=== PATIENT | male | born 1990 | race Caucasian/White ===

== ENCOUNTER 2016-10-04 10:57 | Observation (INO) | payer SELFPAY ==
[~2016-10-04 10:57] MED LIST: ceFAZolin 2 GM/DEXTROSE 100 ML IV SCH
[2016-10-04] MEDS ORDERED: fentaNYL 100 MCG/2 ML INJ ONE ×3 (11:05→17:13)
[2016-10-04] MEDS ORDERED: ONDANSETRON 4 MG/2 ML VIAL ONE ×2 (11:05→19:05)
--- NOTE | 2016-10-04 11:22 | EDPHY ---
H & P HPI/ROS: CHIEF COMPLAINT: Fall HISTORY OF PRESENT ILLNESS: Patient is a 26-year-old male who presents emergency department after falling approximately 15 feet while climbing. Patient had a prolonged extrication. Patient arrives by [facility]. Patient complains of bilateral ankle pain that is severe. Patient states he thinks his ankle was dislocated. The patient also complains of moderate left knee pain. Patient states he dislocated his right shoulder but was able to put it back in. The patient denies striking his head. He has no headache or loss of consciousness. No nausea or vomiting. No neck pain. No back pain. The patient denies chest pain or shortness of breath. No abdominal discomfort. REVIEW OF SYSTEMS: My complete review of systems is negative except as mentioned in the HPI. Past Medical/Surgical History: Negative Past surgical history: Negative Social history: Patient does not smoke. Smoking Status: Never smoked Physical Exam: Vitals noted GENERAL: Well-appearing, in no acute distress, alert. HEAD: No evidence of trauma. EYES: PERRLA, EOMI, normal to inspection. ENT: Airway intact, no dental or oral injury, no malocclusion, no hemotympanum , normal external examination. NECK: The trachea is midline. There is no crepitus. The C-spine is nontender. NEXUS criteria is negative (no midline tenderness, no distracting injury, no altered mental status, no recent alcohol use, no focal neurologic deficit). RESPIRATORY: Clear to auscultation bilaterally, no rales, rhonchi or wheezing. There is no crepitus or palpable rib fractures. CVS: Regular rate and rhythm, no rubs, murmurs, or gallops. ABDOMEN: Soft, nontender, nondistended, normal bowel sounds, no bruising or abrasions. Pelvis: Stable. No tenderness palpation. Hips full range of motion. GENITAL/RECTAL: Normal external exam. BACK: Normal to inspection, no spinal tenderness, no spinal step off, no notable bruising or abrasions. SKIN: Normal color, warm, dry. No pallor or diaphoresis. EXTREMITIES: Right upper extremity: Mild right shoulder tenderness to palpation. No deformity. No laceration. Neurovascular intact distally. Left upper extremity: Atraumatic. No visible signs of trauma. No tenderness palpation. Neurovascular intact distally. Right lower extremity: Swollen and diffusely tender right ankle. No proximal tib-fib tenderness to palpation. Femur nontender. Patella is nontender Neurovascular intact distally. Left lower extremity: Swollen and diffusely tender left ankle. Small abrasion. No proximal tib-fib tenderness palpation. Patella is nontender. Femur nontender. Neurovascular intact distally. NEURO/PSYCH: Alert and oriented x 3, GCS 15, normal mood and affect, normal motor sensory exam. Constitutional: Initial Vital Signs Temperature (C) 36.7 C 10/04/16 11:05 Heart Rate 88 10/04/16 11:05 Respiratory Rate 18 10/04/16 11:05 Blood Pressure 160/109 H 10/04/16 11:05 O2 Sat (%) 100 10/04/16 11:05 O2 Delivery Mode Non-Rebreather Mask Allergies/Adverse Reactions: No Known Allergies Allergy (Unverified 10/04/16 11:04) Home Medications: Medication Instructions Recorded NK [No Known Home Meds] 10/04/16 Medical Decision Making - Diagnostics Imaging Results: Imaging Impressions Pelvis X-Ray 10/04/16 11:05 Impression: 1. Negative AP pelvis radiograph. Lumbar Spine X-Ray 10/04/16 11:09 Impression: Negative limited lumbar spine radiographs. If the patient has persistent pain and lumbar spine region, noncontrast CT is suggested. Shoulder X-Ray 10/04/16 11:23 Impression: Negative right shoulder radiographs. ED Course/Re-evaluation: In the emergency department I met [facility] on arrival. I took report from the flight team. I discussed the plan with the patient answered all his questions. Dr. Zoltan Quigley from trauma service was present. Rechecked the patient on numerous occasions. I spent considerable time at the patient's bedside. I reviewed the patient's imaging studies Right shoulder x-ray: No acute disease Pelvic x-ray: No acute disease Right ankle x-ray: Patient has an abnormal pending right ankle. I reviewed this with the radiologist Dr. Alva. Please refer the dictated report. He recommended CT imaging. Left ankle x-ray: Patient has a distal fracture of tibia and fibula. I discussed the x-ray results with Dr. Purvis from Orthopedics. He recommended bilateral ankle/foot CT scans. I discussed the results with the patient. I answered all his questions. He is placed in a shoulder sling on the right side. He was neurovascularly intact post sling placement. I discussed the findings with Dr. Jonny Quigley. I discussed the plan of CT imaging and admission. A long leg posterior splint was placed on the left. A short-leg posterior placed on the right. Patient was neurovascular intact bilaterally after splint placement. Differential Diagnosis: Differential includes but is not limited to fracture, dislocation, contusion, sprain, pelvic fracture, spinal injury, closed head injury - Data Points Laboratory Results: 10/04/16 10:59 POC Hgb 14.3 gm/dL gm/dL (13.7-17.5) POC Hct 42 % % (40-51) POC Sodium 141 mEq/L mEq/L (134-144) POC Potassium 3.5 mEq/L mEq/L (3.3-5.0) POC Chloride 103 mEq/L mEq/L (97-110) POC BUN 16 mg/dL mg/dL (7-23) POC Creatinine 1.0 mg/dL mg/dL (0.7-1.3) POC Glucose 135 mg/dL H mg/dL (70-100) Point of Care Test Results: 10/04/16 10:59 POC Sodium 141 POC Potassium 3.5 POC Chloride 103 POC BUN 16 POC Creatinine 1.0 POC Glucose 135 H Departure - Departure Disposition: [facility] Inpatient Acute Clinical Impression: Ankle fracture Condition: Good
[2016-10-04] MEDS ORDERED: fentaNYL 100 MCG/2 ML INJ IVP ONE ×2 (13:27→16:45)
--- NOTE | 2016-10-04 15:18 | PDGENHP ---
History & Physical Chief Complaint: PAINFUL ANKLES AFTER A FALL History of Present Illness: 26-YEAR-OLD MALE WHO FELL LAST NIGHT APPROXIMATELY 15 FEET SUSTAINING BILATERAL ANKLE INJURIES. NOT EXTRICATED FROM THE WOOD'S UNTIL THIS MORNING AND COMPLAINS OF PRIMARILY ONLY ANKLE PAIN AND SOME LEFT KNEE PAIN. HE ALSO HAD A RIGHT SHOULDER DISLOCATION WHICH HE FEELS LIKE HE REDUCED HIMSELF, SOMETHING HE HAS HAD TO DO 2 3 OTHER TIMES. ADMITTED AT THIS TIME A TRAUMA ACTIVATION Pertinent Past, Social, Family History: PAST MEDICAL HISTORY INCLUDES CHOLECYSTECTOMY. ALLERGIES NONE. MEDICATIONS NONE. REVIEW OF SYSTEMS IS NEGATIVE ON A FULL 10 POINT REVIEW OF SYSTEMS AND SPECIFICALLY NO CARDIOPULMONARY SYMPTOMS OR SMOKING. FAMILY HISTORY NONCONTRIBUTORY Relevant Physical Exam: GENERAL HEALTHY 26-YEAR-OLD MALE WHO IS IN NO ACUTE DISTRESS AND AFEBRILE. HEENT: PERRLA, EOMS INTACT, NO ORAL LESIONS OR THYROMEGALY, NECK IS SUPPLE NONTENDER. CHEST: CLEAR AND SYMMETRIC WITH NO PALPABLE RIB FRACTURES. COR: REGULAR RHYTHM WITHOUT MURMURS. ABDOMEN: SOFT NONTENDER WITHOUT ORGANOMEGALY. EXTREMITIES: FULL DISTAL PULSES, BILATERAL PALPABLE ANKLE FRACTURES WORST ON THE LEFT. BOTH FRACTURES ARE CLOSE. THE EXAM REVEALS A STABLE KNEE. NEURO: CRANIAL NERVES INTACT, MOTOR AND SENSORY EXAM EQUAL AND SYMMETRIC. PSYCH: ORIENTED AND COOPERATIVE IN FULLY AWARE. MUSCULOSKELETAL: NO BACK HER RIB FRACTURES A PALPABLE Cardiorespiratory Assessment: IMPRESSION: BILATERAL ANKLE FRACTURES WORSE ON THE LEFT. PLAN: ORTHOPEDIC CONSULTATION. ADMITTED TO THE TRAUMA SERVICE. IVS AND PAIN MEDICATION UNTIL FURTHER DECISIONS ABOUT SURGERY ARE MADE
[2016-10-04] MEDS ORDERED: ONDANSETRON 4 MG/2 ML VIAL IVP PRN ×2 (15:25→21:22)
[2016-10-04] MEDS ORDERED: D5W 1/2 NS W/ 20 KCl/L 1,000 ML IV SCH (15:30)
[2016-10-04] MEDS: HYDROmorphONE/DILAUDID 1 MG/ML SYR IVP PRN ×2 (15:38→16:33)
[2016-10-04] MEDS ORDERED: LR 1,000 ML IV ONE (16:02)
[2016-10-04] MEDS ORDERED: BUPIVACAINE/EPI 0.25% 30 ML SDV ONE ×2 (16:03→16:05)
[2016-10-04] MEDS ORDERED: POLYMYXIN B SULFATE 500,000 UNIT/10 ML SYR IRR ONE (16:05)
[2016-10-04] MEDS ORDERED: BUPIVACAINE/EPI 0.5% 30 ML SDV ONE (16:10)
[2016-10-04] MEDS ORDERED: BACITRACIN 50,000 UNITS/10 ML SYR IRR ONE (16:11)
[2016-10-04] MEDS ORDERED: HYDROmorphONE/DILAUDID 1 MG/ML SYR ONE ×2 (16:32→21:34)
[2016-10-04] MEDS ORDERED: HYDROmorphONE/DILAUDID 1 MG/ML SYR IVP ONE (16:44)
[2016-10-04] MEDS ORDERED: ceFAZolin 3 GM in D5W 100 ML IV ONE (17:01)
--- NOTE | 2016-10-04 17:02 | PDHPUP ---
History & Physical Update H&P update statement: This history and physical update is based on an assessment of the patient which was completed after admission or registration (within 24 hours), but prior to the surgery/procedure.
--- NOTE | 2016-10-04 17:08 | PDANEPAE ---
ANE History of Present Illness 26 yo M here with traumatic ankle fxs ANE Past Medical History - Cardiovascular History Hx Hypertension: No Hx Arrhythmias: No Hx Chest Pain: No Hx Coronary Artery / Peripheral Vascular Disease: No - Pulmonary History Hx Oxygen in Use at Home: No Hx Sleep Apnea: No Sleep Apnea Screening Result - Last Documented: Negative - Endocrine History Hx Diabetes: No - Chronic Pain History Chronic Pain: No ANE Review of Systems - Exercise capacity Exercise capacity: >=4 METS ANE Patient History - Allergies Allergies/Adverse Reactions: No Known Allergies Allergy (Unverified 10/04/16 11:04) - Home Medications Home Medications: NK [No Known Home Meds] 10/04/16 [Last Taken Unknown] - NPO status NPO Status: no food or drink >8 hours NPO Since - Liquids (Date): 10/04/16 NPO Since - Liquids (Time): 06:00 NPO Since - Solids (Date): 10/04/16 NPO Since - Solids (Time): 06:00 - Anes Hx Anes Hx: no prior problems - Smoking Hx Smoking Status: Never smoked - Alcohol Use Alcohol Use: Occasionally - Family Anes Hx Family Anes Hx: none ANE Labs/Vital Signs - Vital Signs Blood Pressure: 155/99 Heart Rate: 94 Respiratory Rate: 20 O2 Sat (%): 99 Height: 177.8 cm Weight: 95.254 kg ANE Physical Exam - Airway Neck exam: FROM Mallampati Score: Class 2 Mouth exam: normal dental/mouth exam, ball - Pulmonary Pulmonary: no respiratory distress, clear to auscultation - Cardiovascular Cardiovascular: regular rate and rhythym, no murmur, rub, or gallop - ASA Status ASA Status: I ANE Anesthesia Plan Anesthesia Plan: general endotracheal anesthesia Regional Anesthesia: popliteal SNB
[2016-10-04] MEDS ORDERED: ROCURONIUM 50 MG/5 ML VIAL ONE (17:13)
[2016-10-04] MEDS ORDERED: LIDOCAINE 2% 100 MG/5 ML SYR ONE (17:13)
[2016-10-04] MEDS ORDERED: PROPOFOL 200 MG/20 ML VIAL ONE ×2 (17:13)
[2016-10-04] MEDS ORDERED: ceFAZolin 2 GM/DEXTROSE 100 ML IV ONE (17:30)
--- NOTE | 2016-10-04 18:30 | GCON ---
[f rep st] CONSULTATION DATE OF CONSULTATION: 10/04/2016 HISTORY OF PRESENT ILLNESS: The patient is a 26-year-old male who was brought in as a full trauma a ctivation. He apparently fell approximately 15-feet while rock climbing [place] [employer] landing on yolanda th ankles, which were immediately injured, denies any back pain. He did not lose consciousness. De nies any neck or head pain. He did have his right shoulder out of socket, but replaced it himself. He has done this on 2 or 3 occasions in the past. He is quite stable in the emergency room. Evalu ation in the ER revealed a markedly comminuted displaced left tibial fracture on the left and a comm inuted fracture of the right talus on the right and a calcaneal fracture on the right. Also, he had a left fibular head fracture. Pelvic x-rays were negative for any acute problems, as were the lumb ar spine x-rays and as was the shoulder x-ray. He is admitted at this time for Orthopedic consultat ion and pain control. PAST MEDICAL HISTORY: Cholecystectomy and some oral surgery. REVIEW OF SYSTEMS: He denies any major medical problems on full complete 10-point Review of Systems . He specifically denies any cardiopulmonary symptoms. SOCIAL HISTORY: He does not smoke. ALLERGIES: None. MEDICATIONS: None. FAMILY HISTORY: Noncontributory. PHYSICAL EXAMINATION: GENERAL: Reveals an alert 26-year-old male in no acute distress. HEAD AND N PACO EXAM: Reveals no evidence of head trauma. Pupils are normal. TMs are clear. Occlusion is nor mal. There are no oral lesions. NECK: Supple, nontender. No adenopathy or thyromegaly. CHEST: Clear to auscultation and percussion. CARDIAC EXAM: Reveals a regular rhythm without murmurs. ABD OMEN: Soft and nontender without masses or organomegaly. PELVIC: There is no pelvic ring tenderne ss. GENITALIA: Normal. EXTREMITIES: Reveal full distal pulses. Both ankles appear to be fractur ed with swelling and ecchymosis. His knees are stable and intact. NEUROLOGIC: Exam is physiologic . PSYCH: Exam reveals a cooperative 26-year-old male in no acute distress. He is oriented and senior project coordinator perative. MUSCULOSKELETAL: Exam reveals no cervical, thoracic or lumbar spine pain or significant br uising. IMPRESSION: Bilateral ankle fractures. PLAN: Admit for Orthopedic consultation, ORIF of both ankle fractures. Risks and options were full y discussed with the patient and he wishes to proceed. /[id number]/MODL
--- NOTE | 2016-10-04 18:55 | GCON ---
[f rep st] CONSULTATION CHIEF COMPLAINTS: Fall from height. HISTORY OF PRESENT ILLNESS: A 26-year-old male, presented the emergency room after falling 15 feet while climbing there was a prolonged extrication, and arrived today at the emergency room. The injury was yesterday. Complained of bilateral ankle and foot pain. He also thinks his shoulder may have been dislocated. It was dislocated in the past. He felt himself be able relocate against the wall. He says his shoulder pain is improved. Denies loss of consciousness or head injury. REVIEW OF SYSTEMS: A 10-point review of systems performed and is negative other than the HPI. PAST MEDICAL HISTORY: Negative. PAST SURGICAL HISTORY: Negative. SOCIAL HISTORY: He does not smoke. FAMILY HISTORY: Noncontributory. PHYSICAL EXAMINATION: GENERAL: He is alert, oriented, and appropriate. He does not appear in any distress. HEENT: His head is atraumatic. His eyes are equal and reactive. His face is atraumatic. His mouth shows moist mucous membranes. NECK: Supple. He has no tenderness in the midline. RESPIRATORY: Clear to auscultation and has symmetric chest rise. HEART: Pulse is regular rate and rhythm. EXTREMITIES: His upper extremities: He can actually move both shoulders to full range of motion. He has slight discomfort in the right shoulder. He has good internal and external rotation. He is neurovascularly intact in both upper extremities. Lower extremities: He is bilaterally splinted and I did not take these down due to his known injuries. He does have sensation in both toes and can wiggle these. DIAGNOSTIC STUDIES: His x-rays and CT scans were reviewed. His pelvis is negative, as is the lumbar spine and shoulder, appears reduced. His CT and x- rays of his lower extremity on the right show a right talus fracture with comminution and a right calcaneus fracture of the sustentaculum jose cruz. On the left, shows a complex intra-articular pilon fracture. PLAN: He has been splinted. We will plan on taking him to the operating room. He has an anterior piece of the pilon that needs to be reduced. I do not think this can be done with an external fixator, and this seems to be likely threatening the skin. We will plan on ORIF of his pilon on the left. We will also plan on fixing his right side if his swelling is acceptable. I feel the fragments will be able to be better mobilized acutely if it is possible with the swelling. This will involve an ORIF of his talus and the lateral process of his talus, as well as the sustentaculum jose cruz of the calcaneus. I discussed with him the risks of surgery, including nerve injury, especially on the right side, vascular injury, wound complications, nonhealing, nonunion, malunion, arthritis, need for fusions in the future, continued pain, and he elected to proceed. Informed consent obtained. All questions were answered. He was marked preoperatively. /[id number]/MODL MTDD
[2016-10-04] MEDS ORDERED: ceFAZolin 1 GM VIAL ONE (18:58)
[2016-10-04] MEDS ORDERED: DEXAMETHASONE 4 MG/ML VIAL ONE (19:05)
[2016-10-04] MEDS ORDERED: HYDROmorphONE/DILAUDID 2 MG/ML INJ ONE (20:18)
[2016-10-04] MEDS ORDERED: SUGAMMADEX SODIUM 200 MG/2 ML VIAL IVP ONE (20:48)
[2016-10-04] MEDS ORDERED: OXYCODONE/APAP 5/325 TAB PO PRN (21:22)
[2016-10-04] MEDS ORDERED: HYDROmorphONE/DILAUDID 1 MG/ML SYR IVP PRN ×2 (21:22)
[2016-10-04] MEDS ORDERED: fentaNYL 100 MCG/2 ML INJ IVP PRN ×2 (21:22)
[2016-10-04] MEDS ORDERED: PROMETHAZINE HCL 25 MG/ML INJ IVP PRN (21:22)
[2016-10-04] MEDS ORDERED: NALOXONE HCL 0.4 MG/ML INJ IVP PRN (21:22)
[2016-10-04] MEDS ORDERED: ACETAMINOPHEN 500 MG TAB PO PRN (21:22)
--- NOTE | 2016-10-04 21:23 | POSTANESTH ---
Post Anesthetic Evaluation Cardiovascular Status: Normal, Stable, Similar to Pre-Op Cond Respiratory Status: Normal, Stable, Similar to Pre-op Cond. Level of Consciousness/Mental Status: Mildly Sleepy, Arousable Pain Control: Adequate, Prn Tx Ordered Nausea/Vomiting Control: Adequate, Prn Tx Ordered Complications Possibly Related to Anesthesia: None Noted
--- NOTE | 2016-10-04 21:24 | POSTOPPROG ---
Post Op Note Date of Operation: 10/04/16 Surgeon: Cayetano Purvis Anesthesia: GET(General Endotracheal) Pre-op Diagnosis: l pilon fx, R talus and calc fx Post-op Diagnosis: same Indication: above Procedure: R talus orif , L pilon orif Inf/Abcess present in the surg proc area at time of surgery?: No EBL: 50-100
--- NOTE | 2016-10-04 22:12 | GOP ---
[f rep st] OPERATIVE REPORT DATE OF OPERATION: 10/04/2016 SURGEON: Cayetano Purvis MD INDUSTRIAL SERVICER: None. ANESTHESIA: General with right popliteal block and a postoperative left popliteal block. PREOPERATIVE DIAGNOSIS: 1. Right talus and calcaneus fracture. 2. Left pilon fracture. POSTOPERATIVE DIAGNOSIS: 1. Right talus and calcaneus fracture. 2. Left pilon fracture. PROCEDURE PERFORMED: 1. Open reduction and internal fixation, right talus fracture. 2. Open reduction and internal fixation, left pilon fracture. FINDINGS: SPECIMENS: None. ESTIMATED BLOOD LOSS: 50 mL. INDICATIONS: This is a 26-year-old male, who sustained a fall with applying extrication. I saw him after being contacted by the ER. He was already splinted at this time. I counseled him on risks a nd benefits of operative intervention for both sides. His pilon fracture was quite displaced and th ere was a fragment obviously threatening his skin. I also counseled him on operative intervention f or the talus as well as potentially the calcaneus as this was swelling as I was dictating, given april t we were in the operating room and these injuries required surgical intervention. He elected to pr oceed. We discussed risks of nerve injury, continued pain, nonunion, malunion, wound complications, drainage and he elected to proceed. Informed consent was obtained and all questions answered. He was marked preoperatively. DESCRIPTION OF PROCEDURE: He was taken to the operative suite. His anesthesia and blocks were admi nistered. He was given 2 g Ancef, sterilely prepped and draped in normal fashion on the right. Tristan e-out was performed verifying the site, side, location, and there was agreement with the team. I made a decision not to perform an ORIF of his medial calcaneus. There was significant swelling an d threatening of the skin in this area. I felt this was reduced well enough that the swelling would go in a splint and this could be addressed at a later time if necessary. I made a small incision o cordelia his talus laterally. Used a guidewire for 4.7 screw. I placed this across the fracture site. I checked this fluoroscopically, measured this and drilled and placed a 4.7 screw. I placed another 1 in similar fashion. I then took an AP foot x-ray and placed a guide pin across the fracture in t he talar neck and head and then drilled and placed a Mini Acutrak screw across this. X-rays confirm ed reduction compression across the fracture site. The screws were not in the joint. He was irriga andrea, closed with 2-0 Vicryl, 3-0 nylon, placed in a sterile dressing splint and the drapes removed. He was given another g of Ancef, repositioned the patient, sterile prepped and draped in normal fas hion. Another time-out was performed verifying this operation. We began with an incision over the anterior ankle. I worked through the interval between the tibialis anterior and the tibia, protecti ng neurovascular structure and brought this laterally. Most of the deep dissection done for me, pro tecting the neurovascular structures. The anterolateral fragment of the tibia was widely displaced and rotated and was significantly threatening the skin. I was able to obtain a provisional reductio n. I worked on irrigating out the joint and fracture fragments. I was unable to obtain a reduction of the posterior fragment using the cortical leads more posterior. I placed clamps across this and then we placed lag screws across this. I then reduced the remaining 2 fragments, held these with c lamps and wires, checked x-rays and liked the joint surfaces. I was also able to look directly in t he joint and liked this, as well as extra-articularly. Placed lag screws across these to told him p rovisionally. I then selected a plate and placed this on and checked this fluoroscopically. I brought this to [facility] with cortical and also cancellous screws. I then placed a cortical screw proximally. I placed di stal locking screws to hold the fragments together using the variable angle slots and guide, and the n cortical screws proximally to hold the stable construct across the entire fracture. Final fluoros copic images confirmed reduction and hardware placement. The joint was thoroughly irrigated. The w ounds were thoroughly irrigated. It was closed with #1 Vicryl, 0 Vicryl, 2-0 Vicryl, 3-0 nylon, beltran rod in a splint taken to PACU in stable condition. IMPLANTS: Acutrak 4.7 and mini screws on the right, and on the left is a [employer]ynthes anterolateral vari able angle locking plate with cortical and locking screws. COMPLICATIONS: None. DRAINS: None. CONDITION: Stable. /[id number]/MODL
[2016-10-04] MEDS: D5W 1/2 NS 1,000 ML IV SCH (22:34)
[2016-10-05] MEDS: ceFAZolin 2 GM/DEXTROSE 100 ML IV SCH ×2 (02:41→11:15)
[2016-10-05] MEDS: oxyCODONE IR 5 MG TAB PO PRN ×6 (05:24→22:07)
[2016-10-05] MEDS: D5W 1/2 NS 1,000 ML IV SCH (05:24)
[2016-10-05] MEDS: ACETAMINOPHEN 325 MG TAB PO PRN ×2 (05:24→22:07)
[2016-10-05] MEDS: HYDROmorphONE/DILAUDID 1 MG/ML SYR IVP PRN ×3 (05:35→22:06)
[2016-10-05] MEDS ORDERED: ceFAZolin 2 GM/DEXTROSE 100 ML IV SCH (06:00)
--- NOTE | 2016-10-05 08:45 | TRAUMAPN ---
Assessment/Plan: 26-year-old male status post fall while climbing with bilateral ankle fractures , status post ORIF. Tertiary exam Neuro: Nonfocal, alert and oriented, pain well controlled Pulm: PRIYANK CV: Hemodynamically stable Abdomen: Soft nondistended nontender, hungry Renal: Quintero in place, will discontinue. Urine output has been appropriate Heme: Stable Id: Afebrile Ortho: Status post ORIF of bilateral ankle fractures last evening, nonweightbearing per Dr. Purvis Dispo: Will likely have extended nonweightbearing status up to 5-6 weeks. Patient lives in [place] and would like to go home, will discuss best way to do this with case management, anticipate he will be in the hospital at least a day or so working on this. Subjective: Doing well, pain is well controlled no complaints Objective: Vital Signs Temp Pulse Resp BP Pulse Ox 36.8 C 82 18 134/77 H 93 10/05/16 07:58 10/05/16 07:58 10/05/16 07:58 10/05/16 07:58 10/05/16 07:58 10/04/16 10/05/16 10/06/16 05:59 05:59 05:59 Intake Total 5800 Output Total 1750 Balance 4050
[2016-10-05] MEDS: ENOXAPARIN 40 MG/0.4 ML SYR SC SCH (12:51)
--- NOTE | 2016-10-05 14:05 | SOAPPROG ---
STEFANI Progress Note Assessment/Plan: Assessment: ORIF left pilon 10/04 orif right talus 10/04 right calc fx Plan: NWB BLE stay in splints keep dry Will need follow up in 1 week to change splints to cast, no suture removal at that time he has my card to make appt or if he leaves [place] he will need an orthopedist to follow him elevate ice Will need to keep working with family about discharge plan 10/05/16 14:03 Subjective: minimal pain Objective: Vital Signs Temp Pulse Resp BP Pulse Ox 37.2 C 88 14 133/71 H 94 10/05/16 11:10 10/05/16 11:10 10/05/16 11:10 10/05/16 11:10 10/05/16 11:10 10/04/16 10/05/16 10/06/16 05:59 05:59 05:59 Intake Total 5800 200 Output Total 1750 Balance 4050 200 splints intact ICD10 Worksheet Patient Problems: Problems Problem Status Onset Ankle fracture Acute
[2016-10-06] MEDS: oxyCODONE IR 5 MG TAB PO PRN ×6 (01:05→11:54)
[2016-10-06] MEDS: HYDROmorphONE/DILAUDID 1 MG/ML SYR IVP PRN ×3 (05:16→22:00)
[2016-10-06] MEDS: ACETAMINOPHEN 325 MG TAB PO PRN ×3 (05:16→20:21)
[2016-10-06] MEDS: ENOXAPARIN 40 MG/0.4 ML SYR SC SCH (07:23)
[2016-10-06] MEDS ORDERED: diphenhydrAMINE 25 MG CAP PO ONE (08:56)
[2016-10-06] MEDS ORDERED: diphenhydrAMINE 25 MG CAP PO PRN (08:57)
--- NOTE | 2016-10-06 12:12 | SOAPPROG ---
STEFANI Progress Note Assessment/Plan: Assessment: ORIF left pilon 10/04 orif right talus 10/04 right calc fx Plan: NWB BLE stay in splints keep dry Will need follow up in 1 week to change splints to cast, no suture removal at that time he has my card to make appt or if he leaves [place] he will need an orthopedist to follow him elevate ice Will need to keep working with family about discharge plan, he may need temporay placement in [place] given his bilateral non wt bearing status on his lower extremities 10/05/16 14:03 10/06/16 12:11 Subjective: pain ok Objective: Vital Signs Temp Pulse Resp BP Pulse Ox 37.1 C 88 16 160/100 H 89 L 10/06/16 11:27 10/06/16 11:27 10/06/16 11:27 10/06/16 11:27 10/06/16 11:27 10/05/16 10/06/16 10/07/16 05:59 05:59 05:59 Intake Total 5800 3250 200 Output Total 1750 1350 Balance 4050 1900 200 splints dry ICD10 Worksheet Patient Problems: Problems Problem Status Onset Ankle fracture Acute
[2016-10-06] MEDS ORDERED: BISACODYL 10 MG SUPP PR PRN (14:06)
[2016-10-06] MEDS ORDERED: MAGNESIUM HYDROXIDE 30 ML UDCUP PO PRN (14:06)
[2016-10-06] MEDS ORDERED: POLYETHYLENE GLYCOL 3350 17 GM PKT PO PRN (14:06)
[2016-10-06] MEDS ORDERED: LACTULOSE 20 GM/30 ML UDCUP PO PRN (14:06)
[2016-10-06] MEDS ORDERED: SENNOSIDES/DOCUSATE SODIUM TAB PO ONE (14:07)
[2016-10-06] MEDS ORDERED: SENNOSIDES/DOCUSATE SODIUM TAB PO SCH (14:15)
[2016-10-06] MEDS: HYDROmorphONE/DILAUDID 4 MG TAB PO PRN ×4 (14:19→23:15)
[2016-10-06] MEDS: SENNOSIDES/DOCUSATE SODIUM TAB PO SCH ×2 (14:19→20:22)
--- NOTE | 2016-10-06 14:21 | TRAUMAPN ---
- Problem/Surgery Performed (1) Fall Qualifiers: Encounter type: initial encounter Qualified Code(s): W19.XXXA - Unspecified fall, initial encounter (2) Mountain climbing, rock climbing and wall climbing Assessment/Plan: 15 ft. fall while rock climbing/extricated via helicopter helmeted without LOC (3) Ankle fracture Assessment/Plan: s/p ORIF right Talus fx/reduction calcaneous fracture Dr. Purvis distal N/V intact Qualifiers: Encounter type: initial encounter Fracture type: closed Open fracture type: O Laterality: right Fracture healing: F Qualified Code(s): S82.891A - Other fracture of right lower leg, initial encounter for closed fracture (4) Fracture of distal end of left tibia Assessment/Plan: s/p ORIF Dr. Purvis distal N/V intact Qualifiers: Encounter type: initial encounter Fracture type: closed Open fracture type: O Fracture morphology: F Fracture alignment: displaced Fracture healing: F Qualified Code(s): S82.872A - Displaced pilon fracture of left tibia, initial encounter for closed fracture Assessment/Plan: Juancarlos would like to return to [place] tomorrow. His brother is a wellness spa manager and will fly in from [facility] tomorrow and drive him to the airport and assist him in his return. I recommended we continue Lovenox VTE prophylaxis for a full 7 days. I switched him to oral Dilaudid as the Oxy might be contributing to his itching Subjective: itching all over/pain reasonably well controlled/no BM since admission tolerating regular diet Objective: Vital Signs Temp Pulse Resp BP Pulse Ox 37.1 C 88 16 160/100 H 89 L 10/06/16 11:27 10/06/16 11:27 10/06/16 11:27 10/06/16 11:27 10/06/16 11:27 10/05/16 10/06/16 10/07/16 05:59 05:59 05:59 Intake Total 5800 3250 200 Output Total 1750 1350 Balance 4050 1900 200 - C-Spine Clearance Cervical Spine Cleared: Yes Provider who Cleared Cervical Spine: Dann Physical Exam - Physical Exam General Appearance: WD/WN, mild distress (c/o itching) Neck: non-tender, supple Respiratory: chest non-tender, lungs clear, normal breath sounds Cardiac/Chest: regular rate, rhythm Abdomen: non-tender, soft Male Genitalia: deferred Rectal: deferred Back: Normal inspection Skin: warm/dry Extremities: other (bilateral LE post splints/distal N/V intact/good cap refill) Neuro/Psych: alert, normal mood/affect, oriented x 3 Time Spent w/Patient (minutes): 20
[2016-10-07] MEDS: HYDROmorphONE/DILAUDID 4 MG TAB PO PRN ×3 (03:06→13:55)
--- NOTE | 2016-10-07 06:38 | PDDCSUM ---
Discharge Summary Discharge Summary: DOA: 10/04/16 DOD: 10/07/16 DC Dx: 1. s/p fall while rock climbing 2. right talus/calcaneus fracture 3. left Pilon fracture Procedures: ORIF bilateral ankle fractures Dr. Purvis Course: For detail see admission note and progress notes-briefly, Juancarlos fell while climbing about 15 ft. onto a ledge landing on both feet. He then fell an additional 15 ft. landing on a second ledge. He was helmeted and did not have LOC. He was extricated by helicopter and transported to [facility] and admitted to the trauma service. Dr. Purvis performed bilateral ORIF and recommended non-weight bearing for 6 weeks. He had moderate to severe pain and developed itching with Percocet. He was switched to oral Dilaudid and tolerated that well. He was discharged to return to [place] later today. At the time of discharge he was awake, alert and had intact distal N/V exam. I recommended he continue VTE prophylaxis for an additional week. DC meds: Dilaudid 4mg #30 Lovenox 40mg #7 Senokot S #30 Miralax 17 gm #10 FU with Orthopedic Surgeon in [place]. Patient has copies of films
[2016-10-07 07:40] VITALS: RESP 16
--- NOTE | 2016-10-07 07:42 | SOAPPROG ---
STEFANI Progress Note Assessment/Plan: Assessment: ORIF left pilon 10/04 orif right talus 10/04 right calc fx Plan: NWB BLE stay in splints keep dry Will need follow up in 1 week to change splints to cast, no suture removal at that time ice, elevate he is planning to fly home tomorrow, I agree with tara as he is at increased dvt risk flying he has my email to send me xrays and updates 10/05/16 14:03 10/06/16 12:11 10/07/16 07:41 Subjective: pain controlled Objective: Vital Signs Temp Pulse Resp BP Pulse Ox 36.7 C 79 16 140/94 H 94 10/07/16 07:30 10/07/16 07:30 10/07/16 07:30 10/07/16 04:00 10/07/16 07:30 10/06/16 10/07/16 10/08/16 05:59 05:59 05:59 Intake Total 3250 200 Output Total 1350 800 Balance 1900 -600 splints dry ICD10 Worksheet Patient Problems: Problems Problem Status Onset Ankle fracture Acute Fall Acute Fracture of distal end of left tibia Acute Mountain climbing, rock climbing and wall climbing Acute
[2016-10-07] MEDS: SENNOSIDES/DOCUSATE SODIUM TAB PO SCH (08:37)
[2016-10-07] MEDS: ENOXAPARIN 40 MG/0.4 ML SYR SC SCH (08:38)
[2016-10-07] MEDS: ACETAMINOPHEN 325 MG TAB PO PRN (10:56)
[2016-10-07 11:55] VITALS: BP 141/100; PULSE 91; TEMP 99.4; O2SAT 96
== END 2016-10-07 15:47 | disposition home or self-care (01) ==
LOC: F3N 14:18
PROVIDERS: ADMIT Surgery; ATTEND Surgery
PROC: 0QSH04Z Reposition Left Tibia with Internal Fixation Device, Open Approach (ICD-10-PCS; principal; 2016-10-04 17:00)
PROC: 0QSL04Z Reposition Right Tarsal with Internal Fixation Device, Open Approach (ICD-10-PCS; principal; 2016-10-04 17:00)
DX: S82.872A Displaced pilon fracture of left tibia, initial encounter for closed fracture (principal); S92.191A Other fracture of right talus, initial encounter for closed fracture; S92.001A Unspecified fracture of right calcaneus, initial encounter for closed fracture; S82.832A Other fracture of upper and lower end of left fibula, initial encounter for closed fracture; T40.2X5A Adverse effect of other opioids, initial encounter; L29.9 Pruritus, unspecified; M25.511 Pain in right shoulder; Y93.31 Activity, mountain climbing, rock climbing and wall climbing; W17.89XA Other fall from one level to another, initial encounter; Y92.828 Other wilderness area as the place of occurrence of the external cause; Y99.8 Other external cause status
CPT/HCPCS: 82947-QW; 92523-GN; 96374; 97161-GP; 97165-GO; 97530-GP; 97535-GO; A4565; C1713; C1769; G0378; J0690; J1100; J1170; J1650; J2001; J2405; J2704; J3010